=== PATIENT | female | born 2000 | race Caucasian/White ===

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

== ENCOUNTER 2020-03-26 15:58 | Emergency (ER) | payer OTHER, SELFPAY ==
--- NOTE | ~2020-03-26 | CT_ITS ---
EXAMINATION: CT abdomen pelvis w con DATE: 03/26/2020 17:32 INDICATION: Upper abdominal pain. Elevated serum lipase. TECHNIQUE: Computed tomography (CT) of the abdomen and pelvis was performed with 100 cc Omnipaque 350 intravenous contrast. Automated exposure control and iterative reconstruction technique were employe d. Exam dose: 488.71 mGy-cm total exam DLP. COMPARISON: None. FINDINGS: The lung bases are clear of infiltrate or consolidation. Normal heart size. No pericardial or pleural effusion. There is mild peripancreatic fat stranding suggesting acute interstitial edematous pancreatitis. No p ancreatic calcification or ductal dilatation. No pancreatic mass lesion is evident. The liver, gallbladder, bile ducts, spleen and adrenal glands are unremarkable. Small lower pole righ t renal cyst. No other renal mass lesion is evident. No urinary tract calculus or hydroureteronephros is. The urinary bladder, uterus and adnexal areas are unremarkable other than retroversion of the mehul lia. Normal caliber of the abdominal aorta. No intraperitoneal or retroperitoneal or pelvic mass lesion or adenopathy or ascites. Normal appendix. No bowel obstruction, bowel wall thickening, pneumatosis or intraperitoneal free air . Small fat-containing umbilical hernia. Suspicious osteolytic or osteoblastic lesions. IMPRESSION: Peripancreatic fat stranding suggesting acute interstitial edematous pancreatitis Reviewed, dictated and finalized at Location [facility]. Reviewed, dictated and finalized at location A. O/PROSTHETIC AIDE IMPRESSION: Peripancreatic fat stranding suggesting acute interstitial edemato us pancreatitis
--- NOTE | ~2020-03-26 | US_ITS ---
US right upper quadrant DATE: 03/26/2020 18:14 INDICATION: Epigastric abdominal pain. Elevated serum lipase. TECHNIQUE: Real-time imaging of liver, pancreas, gallbladder areas COMPARISON: 03/26/2020 CT abdomen pelvis FINDINGS: Normal hepatopedal portal venous flow direction. No hepatic space-occupying mass lesion is detected. No gallstones or gallbladder wall thickening or abnormal pericholecystic fluid collection. The common bile duct measures 2.6 mm, within normal range. Negative sonographic Myers's sign. There is heterogeneous density and relative enlargement of the pancreatic body and tail, which may be consistent with pancreatitis. IMPRESSION: Heterogeneous density and enlargement of the pancreatic body/tail, suggesting possible pa ncreatitis Negative gallbladder Reviewed, dictated and finalized at [facility]. Reviewed, dictated and finalized at location A. ODS TIME ANALYST IMPRESSION: Heterogeneous density and enlargement of the pancreatic body/tail, suggesting possible pancreatitis Negative gallbladder
--- NOTE | ~2020-03-26 | XR_ITS ---
EXAMINATION: XR chest 2V DATE: 03/26/2020 16:47 INDICATION: Epigastric abdominal pain and midsternal chest pain. TECHNIQUE: Frontal and lateral views of the chest were obtained. COMPARISON: Chest 2 views 11/13/2019 FINDINGS: The chest demonstrates clear lungs without pneumonia, pleural effusion, or pneumothorax. Th e heart size is normal. IMPRESSION: 1. No acute cardiopulmonary disease. Reviewed, dictated and finalized at location A. TIC OPERATOR
[2020-03-26 16:02] VITALS: BP 144/83; PULSE 93; RESP 18; TEMP 36.1; O2SAT 99
[2020-03-26 16:16] LABS: Basophils Percent Auto 0.3 % (0.2-1.2); Eosinophils Absolute Auto 0.1 K/mm3 (0-0.3); Eosinophils Percent Auto 1.4 % (0-4.4); Hematocrit 38.7 % (37.0-47.0); Immature Granulocyte Absolute 0.02 K/mm3 (0.00-0.031); Immature Granulocyte Percent A 0.3 % (0-0.5); Lymphocytes Absolute Auto 2.79 K/mm3 (0.9-3.2); Lymphocytes Percent Auto 35.2 % (18.3-44.2); Mean Corpuscular HGB Conc 33.6 g/dl (32-36); Mean Corpuscular Hemoglobin 28.7 pg (26-34); Mean Corpuscular Volume 85.4 fl (80-100); Mean Platelet Volume 9.5 fl (7.4-10.4); Monocytes Absolute Auto 0.4 K/mm3 (0.1-0.6); Monocytes Percent Auto 5.6 % (2.6-8.5); Neutrophils Absolute Auto 4.5 K/mm3 (1.3-6.7); Neutrophils Percent Auto 57.2 % (45.5-73.1); Platelet Count Result 278 k/mm3 (150-375); Red Blood Count 4.53 M/mm3 (4.2-5.4); Red Cell Distribution Width 12.3 % (11.5-14.5); White Blood Count 7.9 K/mm3 (4.5-10.0)
--- NOTE | 2020-03-26 16:32 | ECG_ITS ---
Measurements Intervals [place] Rate: 79 P: 19 IN: 160 QRS: 32 QRSD: 114 T: 21 QT: 368 QTc: 422 Interpretive Statements SINUS RHYTHM WITH SINUS ARRHYTHMIA INCOMPLETE RIGHT BUNDLE BRANCH BLOCK BORDERLINE ECG Electronically Signed On 03-26-2020 18:21:23 PULL OVER MACHINE OPERATOR by Tom Mariscal D.O.
--- NOTE | 2020-03-26 16:34 | ED.CHESTPAIN ---
HPI - Chest Pain General Chief Complaint: Abdominal Pain Stated Complaint: upper abd pain Time Seen by Provider: 03/26/20 16:11 Source: patient Mode of arrival: ambulatory Limitations: no limitations History of Present Illness HPI narrative: This is a 19 year old female that presents to the ER for intermittent substernal chest pain over the last 2 weeks. Pain is sharp and worse with breathing. Associated with some nausea and upper abdominal discomfort. Denies fever, cough, shortness of breath, vomiting, dysuria or diarrhea. Related Data Home Medications Medication Instructions Recorded Confirmed norethindrone-e.estradiol-iron tablet 11/13/19 Allergies Allergy/AdvReac Type Severity Reaction Status Date / Time CEFUROXIME AXETIL Allergy Unknown Unknown Uncoded 03/26/20 16:07 Review of Systems Review of Systems: Narrative: CONSTITUTIONAL: Denies fever CARDIOVASCULAR: Reports chest pain. Denies palpitations, or edema. RESPIRATORY: Denies cough or dyspnea. GASTROINTESTINAL: Reports abdominal pain, nausea. Denies vomiting, or diarrhea. GENITOURINARY: Denies dysuria or hematuria. All systems reviewed & are unremarkable except as noted in HPI and below PMFSH Past Medical History Medical History (Updated 03/26/20 @ 19:23 by Joann David PA-C) ADHD (attention deficit hyperactivity disorder) Surgical History Surgical History (Updated 11/13/19 @ 17:01 by FERN Álvarez) No significant past surgical history Family History Family History (Updated 11/13/19 @ 17:02 by FERN Álvarez) Father Unknown family medical history Mother Alive and well Social History Social History (Updated 03/26/20 @ 16:35 by Joann David PA-C) Smoking status: Never smoker Second hand tobacco smoke exposure: Yes Alcohol intake: never Substance use: current Substance use type: marijuana Gender identity (if verbalized by the patient): Female Exam Narrative: Exam Narrative: GENERAL: Well-appearing, well-nourished, and in no acute distress. HEAD: Normocephalic, atraumatic. EYES: EOMI. CHEST: Clear to auscultation. No respiratory distress. No wheezes rales or rhonchi HEART: Regular rate and rhythm. No murmur heard. Normal peripheral pulses. ABDOMEN: Soft, nondistended, normal active bowel sounds. Mild tenderness to palpation in the epigastrium, without guarding EXTREMITIES: Normal range of motion. No edema. SKIN: Warm, dry, no rash. NEURO: No focal deficits. Alert and oriented x3. PSYCH: Normal mood and affect Course Consultations Consultation #1: Spoke with Dr. Price about patient and workup who will follow up in clinic. Date: 03/26/20 Time: 19:28 Vital Signs Vital signs: Vital Signs Temperature 97 F L 03/26/20 16:02 Pulse Rate 93 03/26/20 16:02 Respiratory Rate 18 03/26/20 16:02 Blood Pressure 144/83 H 03/26/20 16:02 Pulse Oximetry 99 03/26/20 16:02 Temperature 97 F L 03/26/20 16:02 Pulse Rate 64 03/26/20 18:56 Respiratory Rate 14 03/26/20 18:56 Blood Pressure 134/78 03/26/20 18:56 Pulse Oximetry 100 03/26/20 18:56 MDM - Chest Pain MDM Narrative Medical decision making narrative: Patient presents the emergency department for upper abdominal discomfort x2 weeks. She is afebrile and nontoxic-appearing. CBC is without leukocytosis. Metabolic panel without concerning findings. Lipase is elevated 1211. UA without overt evidence of infection. Likely a contaminated catch. Bedside test is negative. CT scan of the abdomen and pelvis shows fairly pancreatic fat stranding suggesting acute interstitial edematous pancreatitis. Right upper quadrant ultrasound shows a normal gallbladder. Triglycerides are normal. Patient does not report any drinking history. Patient's pain is controlled and is tolerating oral intake. Spoke with Dr. Price about patient and workup who will follow up in clinic. Patient is stable and felt appropriate for further out
[2020-03-26 16:37] LABS: Alanine Aminotransferase 10 U/L (4-35); Albumin Level 4.4 g/dL (3.7-5.6); Alkaline Phosphatase 88 U/L (45-116); Anion Gap 8 mmol/L (8-16); Aspartate Amino Transferase 21 U/L (14-36); Bilirubin,Total 0.5 mg/dL (0.2-1.3); Blood Urea Nitrogen 11 mg/dL (8-21); Calcium 9.2 mg/dL (8.9-10.7); Carbon Dioxide 25 mmol/L (22-30); Chloride 103 mmol/L (98-107); Estimated CRCL calculation 120 ml/min; Estimated Glomerular Filt Rate > 60; Glucose 89 mg/dL (65-105); Lipase 1811 U/L (23-300); Potassium 3.9 mmol/L (3.4-5.0); Sodium 136 mmol/L (134-143)
[2020-03-26 16:38] LABS: Add Urine Microscopic? YES; Appearance Urine Cloudy (Clear); Bacteria Urine Trace /hpf; Bilirubin Urine Negative (Negative); Blood Urine 1+ (Negative); Color Urine Yellow (Yellow); Glucose Urine UA Negative (Negative); Ketones Urine Trace mg/dL (Negative); Leukocyte Esterase Ur 1+ LEU/UL (Negative); Mucus Urine Moderate /lpf; Nitrate Urine Negative (Negative); Protein Urine 1+ mg/dL (Negative); Squamous Epithelial Cell Urine Many /hpf (Few); Urobilinogen Urine Negative mg/dL (<2.0)
[2020-03-26 16:41] LABS: Specific Grav Ur 1.031 (1.001-1.035)
[2020-03-26 16:52] LABS: Prothrombin Time 13.3 Seconds (11.1-14.7)
[2020-03-26 16:53] LABS: Partial Thromboplastin Time 27.9 SECONDS (22.3-36.8)
[2020-03-26 16:55] LABS: D Dimer 0.46 ug/mL (<0.48)
[2020-03-26 17:13] LABS: Triglycerides 149 mg/dL (<150)
[2020-03-26] MEDS: SODIUM CHLORIDE 0.9% IV 1,000 ML 999 ML IV CONT (17:20)
[2020-03-26] MEDS: ONDANSETRON INJ 4 MG/2 ML VIAL IV PUSH (17:20)
[2020-03-26 17:25] LABS: Troponin I < 0.012 ng/mL (0.000-0.034)
[2020-03-26 18:56] VITALS: BP 134/78; PULSE 64; RESP 14; O2SAT 100
--- NOTE | 2020-03-26 19:29 | PC.NURSE ---
Report received from Chantel Pacheco RN, to continue care. Pt resting comfortably on stretcher and reports is painfree at present time. Awaiting disposition.
== END 2020-03-26 19:48 | disposition home or self-care (01) ==
PROVIDERS: Physician Assistant; Emergency Provider Emergency Medicine; Family Provider Pediatrics; PCP Pediatrics
DX: K85.90 Acute pancreatitis without necrosis or infection, unspecified (principal); I45.10 Unspecified right bundle-branch block
CPT/HCPCS: 36415; 71046; 74177; 76705; 80053; 81001; 81025; 83690; 84478; 84484; 85025; 85380; 85610; 85730; 87086; 87088; 93005; 96361; 96374; 96375; 99284; J0131; J2405; J7030; Q9967

== ENCOUNTER 2020-04-07 11:10 | Outpatient (CLI) | payer OTHER, SELFPAY ==
[2020-04-07 12:34] LABS: Amylase 192 U/L (30-100); Cholesterol 202 mg/dL (0-200); HDL Direct 50 mg/dL; Lipase 1522 U/L (23-300); Triglycerides 75 mg/dL (<150)
[2020-04-07 12:47] LABS: LDL Cholesterol Direct 144 mg/dL
[2020-04-07 13:05] LABS: Thyroid Stimulating Hormone 0.602 uIU/mL (0.465-4.680)
== END 2020-04-07 11:11 | disposition home or self-care (01) ==
LOC: ANHLAB 11:12
PROVIDERS: PCP Pediatrics; Visit Provider Pediatrics
DX: K85.90 Acute pancreatitis without necrosis or infection, unspecified (principal)
CPT/HCPCS: 36415; 80061; 82150; 83690; 84436; 84443

== ENCOUNTER 2020-06-13 13:35 | Outpatient (CLI) | payer OTHER, SELFPAY ==
[2020-06-13 13:57] LABS: Hematocrit 37.2 % (37.0-47.0); Hemoglobin 12.3 g/dL (12.0-15.0); Mean Corpuscular HGB Conc 33.1 g/dl (32-36); Mean Corpuscular Hemoglobin 28.4 pg (26-34); Mean Corpuscular Volume 85.9 fl (80-100); Mean Platelet Volume 9.7 fl (7.4-10.4); Platelet Count Result 204 k/mm3 (150-375); Red Blood Count 4.33 M/mm3 (4.2-5.4); Red Cell Distribution Width 12.7 % (11.5-14.5); White Blood Count 5.6 K/mm3 (4.5-10.0)
[2020-06-13 14:06] LABS: Alanine Aminotransferase 9 U/L (4-35); Albumin Level 4.4 g/dL (3.7-5.6); Alkaline Phosphatase 76 U/L (45-116); Amylase 77 U/L (30-100); Anion Gap 6 mmol/L (8-16); Aspartate Amino Transferase 22 U/L (14-36); Bilirubin,Total 0.5 mg/dL (0.2-1.3); Blood Urea Nitrogen 12 mg/dL (8-21); Calcium 9.3 mg/dL (8.9-10.7); Carbon Dioxide 23 mmol/L (22-30); Chloride 109 mmol/L (98-107); Estimated Glomerular Filt Rate > 60; Glucose 91 mg/dL (65-105); Lipase 275 U/L (23-300); Potassium 4.1 mmol/L (3.4-5.0); Sodium 138 mmol/L (134-143)
== END 2020-06-13 13:36 | disposition home or self-care (01) ==
PROVIDERS: PCP Pediatrics; Visit Provider Nurse Practitioner Family
DX: K85.90 Acute pancreatitis without necrosis or infection, unspecified (principal)
CPT/HCPCS: 36415; 80053; 82150; 83690; 85027

== ENCOUNTER 2020-08-06 21:30 | Emergency (ER) | payer OTHER, SELFPAY ==
--- NOTE | ~2020-08-06 | XR_ITS ---
EXAMINATION: XR knee LT 3V DATE: 08/06/2020 22:52 INDICATION: Left knee pain post trampoline injury. TECHNIQUE: Anteroposterior, oblique and crosstable lateral views of the left knee were obtained COMPARISON: None. FINDINGS: Alignment is normal. No fracture. Joint spaces appear normal on nonweightbearing imaging. No joint e ffusion/layering lipohemarthrosis. Soft tissues are unremarkable. IMPRESSION: 1. Negative left knee radiographs. Reviewed, dictated and finalized at location A.
[2020-08-06 21:58] VITALS: BP 144/87; PULSE 84; RESP 16; O2SAT 100
[2020-08-06 22:11] VITALS: BP 144/87; PULSE 84; RESP 16; TEMP 36.6; O2SAT 100
--- NOTE | 2020-08-06 23:21 | ED.GENADULT ---
HPI - General Adult General Chief complaint: Extremity Injury, Lower <VELIA Hughes Last Filed: 08/06/20 23:31> Stated complaint: left knee - trampoline <Heriberto Ku PA-C - Last Filed: 08/06/20 23:31> Time Seen by Provider: 08/06/20 22:13 <VELIA Hughes Last Filed: 08/06/20 23:31> Source: patient, family and RN notes reviewed <VELIA Hughes Last Filed: 08/06/20 23:31> Mode of arrival: ambulatory <VELIA Hughes Last Filed: 08/06/20 23:31> Limitations: no limitations <VELIA Hughes Last Filed: 08/06/20 23:31> History of Present Illness HPI narrative: Patient is a 19-year-old female who presents to emergency department for evaluation of left knee pain that began after jumping on a trampoline patient notes aching pain anteriorly and superiorly involving the knee with pain posteriorly when walking patient denies other injuries or complaints on arrival is in no distress has not been seen for this complaint nor she taken anything for her symptoms denies prior injury <Heriberto Ku PA-C - Last Filed: 08/06/20 23:31> Related Data Home medications: Home Medications Medication Instructions Recorded Confirmed norethindrone-e.estradiol-iron tablet 11/13/19 06/13/20 hydroxyzine HCl 25 mg tablet 25 mg PO BID PRN 06/13/20 06/13/20 escitalopram oxalate mg 08/06/20 <VELIA Hughes Last Filed: 08/06/20 23:31> Allergies/adverse reactions: Allergies Allergy/AdvReac Type Severity Reaction Status Date / Time CEFUROXIME AXETIL Allergy Unknown Unknown Uncoded 08/06/20 22:16 <VELIA Hughes Last Filed: 08/06/20 23:31> Review of Systems Review of Systems: All systems reviewed & are unremarkable except as noted in HPI and below <VELIA Hughes Last Filed: 08/06/20 23:31> PMFSH Past Medical History Medical History: Medical History ADHD (attention deficit hyperactivity disorder) Marijuana use <VELIA Hughes Last Filed: 08/06/20 23:31> Surgical History Surgical History: Surgical History No significant past surgical history <Heriberto Ku PA-C - Last Filed: 08/06/20 23:31> Family History Family History: Family History Father Unknown family medical history Mother Alive and well <Heriberto Ku PA-C - Last Filed: 08/06/20 23:31> Social History Social History: Social History Smoking status: Current every day smoker (marijuana use daily) Second hand tobacco smoke exposure: Yes Alcohol intake: never Substance use: current Substance use type: marijuana Gender identity (if verbalized by the patient): Female <Heriberto Ku PA-C - Last Filed: 08/06/20 23:31> Exam Narrative: Exam Narrative: GENERAL: Well-appearing, well-nourished, and in no acute distress. HEAD: Normocephalic, atraumatic. EYES: PERRLA and EOMI. ENT: Nares clear, no rhinorrhea or epistaxis. Mucous membranes moist. EXTREMITIES: Normal range of motion. No edema. Tenderness to palpation involving the posterior aspect of the left knee and anterior aspect SKIN: Warm, dry, no rash. NEURO: No focal deficits. Alert and oriented x3. Neurovascularly intact PSYCH: Normal mood and affect. <Heriberto Ku PA-C - Last Filed: 08/06/20 23:31> Course Course Emergency Course: Patient in the room at this time in no distress aware of case findings treatment plan and diagnosis agreeing to follow-up as instructed or to return if symptoms worsen or concerns. <Heriberto Ku PA-C - Last Filed: 08/06/20 23:31> Vital Signs Vital signs: Vital Signs Pulse Rate 84 08/06/20 21:58 Respiratory Rate 16 08/06/20 21:58 Blood Pressure 144/87 H 08/06/20 21:58 Pulse Oximetry 100 08/06/20
[2020-08-06 23:47] VITALS: BP 120/64; PULSE 86; RESP 18; O2SAT 99
== END 2020-08-06 23:48 | disposition home or self-care (01) ==
PROVIDERS: Emergency Provider General Practice; PCP Pediatrics
DX: M25.562 Pain in left knee (principal); F90.9 Attention-deficit hyperactivity disorder, unspecified type
CPT/HCPCS: 73562; 99283

== ENCOUNTER 2020-09-06 10:25 | Emergency (ER) | payer OTHER, SELFPAY ==
[2020-09-06 10:30] VITALS: BP 125/81; PULSE 54; RESP 16; TEMP 35.8; O2SAT 98
--- NOTE | 2020-09-06 10:35 | ED.URI ---
HPI - URI/Sore Throat General Chief Complaint: Upper Respiratory Infection Stated Complaint: BODY ACHES/COUGH/NASAL CONGESTION/EARACHE Time Seen by Provider: 09/06/20 10:35 Source: patient and RN notes reviewed History of Present Illness HPI Narrative: Patient is a 19-year-old female who presents the urgent care with complaints of right earache, cough, body aches and nasal congestion. Patient states that it started with a cough 2 days ago and everything has progressed. Patient states that she took an [id number]-zlo-[id number] pain killer this morning . Patient also states that she had a Covid test done this morning and will get the results back within a couple hours. Patient denies of any shortness of breath. Denies of any known fevers, nausea, vomiting. No other acute complaints. No acute distress noted. Patient aware of the plan of care. Some parts of this dictation were generated by voice recognition software and may contain typographical and/or grammatical inaccuracies. Related Data Home Medications Medication Instructions Recorded Confirmed norethindrone-e.estradiol-iron tablet 11/13/19 06/13/20 hydroxyzine HCl 25 mg tablet 25 mg PO BID PRN 06/13/20 06/13/20 escitalopram oxalate mg 08/06/20 Allergies Allergy/AdvReac Type Severity Reaction Status Date / Time CEFUROXIME AXETIL Allergy Unknown Unknown Uncoded 08/06/20 22:16 Review of Systems Review of Systems: Narrative: CONSTITUTIONAL: Denies fever, chills, or sweats. EYES: Denies visual changes, redness, or discharge. ENT: Reports of right otalgia, nasal congestion, postnasal drainage and sore throat CARDIOVASCULAR: Denies chest pain, palpitations, or edema. RESPIRATORY: Reports of nonproductive cough without dyspnea GASTROINTESTINAL: Denies abdominal pain, nausea, vomiting, or diarrhea. GENITOURINARY: Denies dysuria or hematuria. SKIN: Denies rash or itching. MUSCULOSKELETAL: Denies back pain, joint pain, or myalgia. NEUROLOGIC: Denies headache, numbness, or weakness. All other systems reviewed are negative, except as documented in HPI. [facility] Past Medical History Medical History ADHD (attention deficit hyperactivity disorder) Marijuana use Surgical History Surgical History No significant past surgical history Family History Family History Father Unknown family medical history Mother Alive and well Social History Social History Smoking status: Current every day smoker (marijuana use daily) Second hand tobacco smoke exposure: Yes Alcohol intake: never Substance use: current Substance use type: marijuana Gender identity (if verbalized by the patient): Female Comments At the time of my signature, I reviewed and agree with the nursing past medical, surgical, social, and family history. There is no relevant family history pertinent to the patient complaint. Exam Narrative: Exam Narrative: GENERAL: This is a well-nourished, well-developed patient, in no apparent distress. HEAD: normocephalic, atraumatic. EYES: PERRL. Sclera clear/white. Vision is grossly intact. EARS: External ears normal, auditory canals clear and without drainage, moderately injected erythemic right TM, left TM normal without perforation. Hearing grossly intact. NOSE: External nose normal with no obvious nasal discharge, nares without redness, no rhinorrhea. THROAT: Mucous membranes moist, posterior pharynx clear. Mild postnasal drainage NECK: Neck supple, non-tender without lymphadenopathy CARDIOVASCULAR: Regular rate and rhythm without murmurs, gallops, or rubs. RESPIRATORY: Clear to auscultation. Breath sounds equal bilaterally. No wheezes, rales, or rhonchi. SKIN: warm, intact with no suspicious lesions or rash, good texture and turgor. NEURO: awake, alert, and oriented to person, place and time. There
== END 2020-09-06 10:56 | disposition home or self-care (01) ==
PROVIDERS: Emergency Provider Nurse Practitioner Family; PCP Pediatrics
DX: H66.91 Otitis media, unspecified, right ear (principal)
CPT/HCPCS: 99213; G0463

== ENCOUNTER 2021-01-15 12:04 | Emergency (ER) | payer OTHER, SELFPAY ==
[2021-01-15 12:12] VITALS: BP 138/84; PULSE 97; RESP 20; TEMP 36.6; O2SAT 98
[2021-01-15 12:17] VITALS: BP 138/84; PULSE 97; RESP 20; TEMP 36.6; O2SAT 98
--- NOTE | 2021-01-15 12:35 | ED.EAR ---
HPI - Ear Problem General Chief complaint: Ear Stated complaint: ear pain/sob/cough/diarrhea/runny nose Source: patient Mode of arrival: ambulatory Limitations: no limitations History of Present Illness HPI Narrative: Patient is a 20-year-old female who presents complaining of left ear pain, cough and congestion. Patient taking at home Covid test 2 days ago which was negative, however, she reports no improvement in symptoms or condition. She denies taking cklt-fgy-wzssgcn medications. She is not vaccinated for Covid, denies known Covid exposure. Patient has no significant medical history. MD Complaint: ear pain Related Data Home Medications Medication Instructions Recorded Confirmed norethindrone-e.estradiol-iron 1 tablet PO DAILY 11/13/19 01/15/21 hydroxyzine HCl 25 mg tablet 25 mg PO BID PRN 06/13/20 01/15/21 escitalopram oxalate 10 mg PO DAILY 08/06/20 01/15/21 albuterol sulfate [ProAir HFA] 2 puff INHALATION Q4H PRN 01/15/21 01/15/21 Allergies Allergy/AdvReac Type Severity Reaction Status Date / Time CEFUROXIME AXETIL Allergy Unknown Unknown Uncoded 01/15/21 12:13 Review of Systems Review of Systems: CONSTITUTIONAL: Denies fever, chills, or sweats. EYES: Denies visual changes, redness, or discharge. ENT: Congestion and left ear pain CARDIOVASCULAR: Denies chest pain, palpitations, or edema. RESPIRATORY: Denies cough or dyspnea. GASTROINTESTINAL: Denies abdominal pain, nausea, vomiting, or diarrhea. GENITOURINARY: Denies dysuria or hematuria. SKIN: Denies rash or itching. MUSCULOSKELETAL: Denies back pain, joint pain, or myalgia. NEUROLOGIC: Denies headache, numbness, dizziness, or weakness. PSYCHIATRIC: Denies anxiety or depression. [facility] Past Medical History Medical History ADHD (attention deficit hyperactivity disorder) Marijuana use Surgical History Surgical History No significant past surgical history Family History Family History Father Unknown family medical history Mother Alive and well Social History Social History Smoking status: Current every day smoker (marijuana use daily) Second hand tobacco smoke exposure: Yes Alcohol intake: never Substance use: current Substance use type: marijuana Gender identity (if verbalized by the patient): Female Sexual Orientation (if Verbalized by the Patient): Straight or Heterosexual Comments At the time of signature, I have reviewed and agree with nursing past medical, surgical, social, and family history unless otherwise noted. Please see nursing chart for further information. There is no relevant family history pertinent to the presenting complaint. Exam Narrative: GENERAL: Well-appearing, well-nourished, and in no acute distress. HEAD: Normocephalic, atraumatic. EYES: EOMI. No redness or drainage. Conjunctiva are normal. ENT: Mucous membranes pink and moist. Nares clear. No rhinorrhea. Right TMs normal, left TM bulging, cloudy, injected. Throat mild erythema. Uvula midline. NECK: AROM. Supple. No lymphadenopathy. CHEST: No respiratory distress. HEART: Regular rate and rhythm. EXTREMITIES: Normal range of motion. No edema. SKIN: Warm, dry, no rash. NEURO: No focal deficits. Alert and oriented x3. Gait steady. PSYCH: Normal affect. No signs of depression or anxiety. Course Vital Signs Vital signs: Vital Signs Temperature 36.6 C 01/15/21 12:12 Pulse Rate 97 01/15/21 12:12 Respiratory Rate 20 01/15/21 12:12 Blood Pressure 138/84 01/15/21 12:12 Pulse Oximetry 98 01/15/21 12:12 Temperature 36.6 C 01/15/21 12:17 Pulse Rate 97 01/15/21 12:17 Respiratory Rate 20 01/15/21 12:17 Blood Pressure 138/84 01/15/21 12:17 Pulse Oximetry 98 01/15/21 12:17 Reviewed Medical Decision Making MDM Narrative Medical decision anni
[2021-01-16 16:37] LABS: SARS-CoV-2 RNA PCR Negative
== END 2021-01-15 12:50 | disposition home or self-care (01) ==
PROVIDERS: Emergency Provider Nurse Practitioner; PCP Pediatrics
DX: H66.92 Otitis media, unspecified, left ear (principal); Z20.822 Contact with and (suspected) exposure to COVID-19; F12.20 Cannabis dependence, uncomplicated
CPT/HCPCS: 99213; C9803; G0463; U0003; U0005

== ENCOUNTER 2021-04-22 10:08 | Day surgery (SDC) | payer OTHER, SELFPAY ==
[2021-04-22] VITALS (10 sets, daily range): BP systolic 119–140; BP diastolic 63–82; PULSE 55–100; RESP 14–21; TEMP 36.3–36.9; O2SAT 99–100
--- NOTE | ~2021-04-22 | CT_ITS ---
EXAMINATION: CT abdomen pelvis w con INDICATION: Abdominal pain TECHNIQUE: Computed tomographic images of the abdomen and pelvis were obtained after the administrati on of 100 cc of Omnipaque 350 intravenous contrast. The dose-length product (DLP) was 559.47 mGy-cm. Automated exposure control and iterative reconstruction technique were employed. COMPARISON: 03/26/2020 FINDINGS: The lung bases are clear. The heart size is normal. The liver, spleen, pancreas, gallbladde r, and adrenal glands are normal. The kidneys are unremarkable. The dilated appendix measures up to 1 .3 cm. There is edematous stranding of the periappendiceal fat. A small amount of periappendiceal flu id is noted. There is no evidence of periappendiceal abscess or perforation. A small amount of inflam matory fluid is present in the pelvis. Mildly enlarged right lower quadrant lymph nodes are likely re active. There is no free intraperitoneal gas or evidence of bowel obstruction. IMPRESSION: 1. Acute appendicitis with inflammatory fluid tracking in the pelvis. No definite evidence of abscess or perforation. These findings were discussed with Dr. Baltazar Davis in the Emergency Department at 1156 hours on 04/22/2021. Reviewed, dictated and finalized at location A. ITION PROGRAM INSTRUCTOR IMPRESSION: 1. Acute appendicitis with inflammatory fluid tracking in the pelvis. No defini te evidence of abscess or perforation. These findings were discussed with Dr. Kia Davis in the Emergency Department at 1156 hours on 04/22/2021.
[2021-04-22 10:36] LABS: Basophils Percent Auto 0.4 % (0.2-1.2); Eosinophils Absolute Auto 0.1 K/mm3 (0-0.3); Eosinophils Percent Auto 1.5 % (0-4.4); Hematocrit 39.2 % (37.0-47.0); Hemoglobin 13.3 g/dL (12.0-15.0); Immature Granulocyte Absolute 0.02 K/mm3 (0.00-0.031); Immature Granulocyte Percent A 0.3 % (0-0.5); Lymphocytes Absolute Auto 1.65 K/mm3 (0.9-3.2); Lymphocytes Percent Auto 22.1 % (18.3-44.2); Mean Corpuscular HGB Conc 33.9 g/dl (32-36); Mean Corpuscular Hemoglobin 29.2 pg (26-34); Mean Platelet Volume 9.1 fl (7.4-10.4); Monocytes Absolute Auto 0.6 K/mm3 (0.1-0.6); Monocytes Percent Auto 8.2 % (2.6-8.5); Neutrophils Percent Auto 67.5 % (45.5-73.1); Platelet Count Result 223 k/mm3 (150-375); Red Blood Count 4.56 M/mm3 (4.2-5.4); Red Cell Distribution Width 12.2 % (11.5-14.5); White Blood Count 7.5 K/mm3 (4.5-10.0)
[2021-04-22 10:58] LABS: Add Urine Microscopic? YES; Appearance Urine Clear (Clear); Bacteria Urine Trace /hpf; Bilirubin Urine Negative (Negative); Blood Urine 1+ (Negative); Color Urine Yellow (Yellow); Glucose Urine UA Negative (Negative); Ketones Urine 1+ mg/dL (Negative); Leukocyte Esterase Ur Trace LEU/UL (Negative); Mucus Urine Rare /lpf; Nitrate Urine Negative (Negative); Protein Urine Negative (Negative); Squamous Epithelial Cell Urine Moderate /hpf (Few); Urobilinogen Urine Negative mg/dL (<2.0)
--- NOTE | 2021-04-22 11:03 | ED.ABDPAIN ---
HPI - Abdominal Pain General Chief Complaint: Abdominal Pain Stated Complaint: abd pain Time Seen by Provider: 04/22/21 10:16 Source: RN notes reviewed History of Present Illness HPI narrative: Patient presents emergency room from home for abdominal pain. Patient symptoms began yesterday pain is located in the bilateral lower abdomen worse in the right lower quadrant described as aching in nature states associated nausea. She denies any fevers or chills chest pain, shortness of breath diarrhea vomiting or any other symptoms. States she not take anything for the pain Related Data Home Medications Medication Instructions Recorded Confirmed norethindrone-e.estradiol-iron 1 tablet PO DAILY 11/13/19 01/15/21 escitalopram oxalate 10 mg PO DAILY 08/06/20 01/15/21 Allergies Allergy/AdvReac Type Severity Reaction Status Date / Time cefuroxime Allergy Rash Verified 04/22/21 10:22 Review of Systems Review of Systems: Gen.: Denies fevers or chills ENT: Denies congestion Respiratory: Denies shortness of breath or cough CV: Denies chest pain or palpitations GI: See for Musculoskeletal: Denies back pain or muscle pain Neuro: Denies numbness, tingling, weakness or focal weakness Skin: Denies rash Except as documented, all other systems reviewed and negative [facility] Past Medical History Medical History ADHD (attention deficit hyperactivity disorder) Marijuana use Surgical History Surgical History No significant past surgical history Family History Family History Father Unknown family medical history Mother Alive and well Social History Social History Smoking status: Current every day smoker (marijuana use daily) Second hand tobacco smoke exposure: Yes Alcohol intake: never Substance use: current Substance use type: marijuana Gender identity (if verbalized by the patient): Female Sexual Orientation (if Verbalized by the Patient): Straight or Heterosexual Exam Narrative: APPEARANCE: No acute distress, nontoxic, resting in bed EYES: EOMI HEENT: Normocephalic, atraumatic, OMM RESPIRATORY: No respiratory distress Clear to auscultation bilaterally with no rhonchi wheezing or rales. CARDIOVASCULAR: Regular rate and rhythm without murmurs rubs or gallops. ABDOMINAL: Soft, nondistended tender palpation right lower quadrant left lower quadrant no tenderness right upper quadrant left lower quadrant no rebound or guarding MUSCULOSKELETAl: Moves all extremities. No clubbing, cyanosis or edema. NEURO: Awake and alert. Following commands, speech normal, no focal deficits SKIN:: Warm, dry. No rashes lesions or abrasions PSYCHIATRIC: Normal affect/mood, Course Course Emergency Course: Discussed with Dr. Eagle presentation work-up plan is to take the patient to the OR today request patient received 1 g Ancef as there is no cross-reactivity with cefuroxime Discussed with patient and family results of workup and diagnosis. Discussed need for admission. Patient and family understand and agree to current treatment plan Vital Signs Vital signs: Vital Signs Temperature 97.6 F 04/22/21 10:10 Pulse Rate 100 04/22/21 10:10 Respiratory Rate 18 04/22/21 10:10 Blood Pressure 129/69 04/22/21 10:10 Pulse Oximetry 100 04/22/21 10:10 Temperature 97.6 F 04/22/21 10:10 Pulse Rate 73 04/22/21 12:32 Respiratory Rate 20 04/22/21 12:32 Blood Pressure 140/82 04/22/21 12:32 Pulse Oximetry 100 04/22/21 12:32 MDM - Abdominal Pain Lab Data Result diagrams: 04/22/21 10:31 04/22/21 10:31 Labs: Lab Results 04/22/21 04/22/21 04/22/21 Range/Units 10:31 10:31 10:41 WBC 7.5 (4.5-10.0) K/mm3 RBC 4.56 (4.2-5.4) M/mm3 Hgb 13.3 (12.0-15.0) g/dL Hct 39.2 (37.0-47.0) % MCV 86.0 (80-
[2021-04-22] MEDS: KETOROLAC 30 MG/ML VIAL (*BKC) IV PUSH (11:12)
[2021-04-22] MEDS: ONDANSETRON INJ 4 MG/2 ML VIAL IV PUSH (11:12)
[2021-04-22] MEDS: SODIUM CHLORIDE 0.9% IV 1,000 ML 999 ML IV CONT (11:13)
[2021-04-22 11:15] LABS: Alanine Aminotransferase 11 U/L (4-35); Albumin Level 4.5 g/dL (3.5-5.1); Alkaline Phosphatase 101 U/L (38-126); Anion Gap 7 mmol/L (8-16); Aspartate Amino Transferase 23 U/L (14-36); Bilirubin,Total 1.5 mg/dL (0.2-1.3); Blood Urea Nitrogen 9 mg/dL (7-17); Calcium 9.5 mg/dL (8.4-10.2); Carbon Dioxide 24 mmol/L (22-30); Chloride 105 mmol/L (98-107); Estimated CRCL calculation 122 ml/min; Estimated Glomerular Filt Rate > 60; Glucose 92 mg/dL (65-110); Lipase 25 U/L (23-300); Sodium 136 mmol/L (137-145)
--- NOTE | 2021-04-22 13:32 | PM.IMHP ---
H&P: HPI History of Present Illness Date/Time: 04/22/21 13:32 Chief Complaint: RLQ abdominal pain Narrative: This is a 20-year-old female who presented to the ER with complaints of lower abdominal pain. She reports that her pain started yesterday shortly after waking up in the morning. It was primarily in the RLQ and was initially mild in nature. She states that the pain worsened throughout the day and by this morning, she was in tears due to the severity of pain. She also reports nausea and bloating, but no vomiting. Denies fever or chills. She came into the ER for evaluation and CT scan of the abdomen/pelvis showed acute appendicitis with inflammatory fluid tracking in the pelvis. No definite evidence of abscess or perforation. Labs showed a normal white blood cell count. Urine bedside negative. Our service was consulted by the ED for surgical evaluation of acute appendicitis. The patient is now seen in the ER. She is still having some nausea, but no vomiting. She has no other specific complaints at this time. Denies ever having this pain in the past. She has had no previous abdominal surgeries. She does report a history of acute pancreatitis in February of 2020. There was no clear etiology at that time and she improved with resolution of her elevated pancreatic enzymes. No further episodes since treated. Review of Systems Review of Systems: All systems reviewed & are unremarkable except as noted in HPI and below Constitutional: Constitutional: Reports as per HPI, Denies chills, Denies fatigue and Denies fever(s) Eyes: Eyes: Reports no additional eye complaints and Denies change in vision ENT: Reports system reviewed and no additional complaints, except as documented, Reports Normal hearing present and Denies dizziness Cardiovascular: Cardiovascular: Reports no additional cardiovascular complaints, Denies chest pain and Denies leg edema Respiratory: Respiratory: Reports no additional respiratory complaints, Denies cough and Denies dyspnea Gastrointestinal: Gastrointestinal: Reports as per HPI, Reports no additional gastrointestinal complaints, Reports abdominal pain (RLQ), Reports bloating, Denies change in bowel habits, Denies change in stool character, Denies constipation, Denies diarrhea and Reports nausea Genitourinary: Genitourinary: Reports no additional female genitourinary complaints, Denies nocturia and Denies dysuria Neurologic: Reports system reviewed and no additional complaints, except as documented, Denies numbness and Denies tingling Psychiatric: Psychiatric: Reports anxiety and Reports depression (treated for anxiety/depression, no current symptoms) [facility] Past Medical History Medical History ADHD (attention deficit hyperactivity disorder) Anxiety and depression History of acute pancreatitis February 2020, unclear etiology Marijuana use Surgical History Surgical History No significant past surgical history Family History Family History Father Unknown family medical history Mother Alive and well Social History Social History Smoking status: Current every day smoker (marijuana use daily) Second hand tobacco smoke exposure: Yes Alcohol intake: never Substance use: current Substance use type: marijuana Occupation/Education: occupation Additional occupation/education comments: works at [employer], not currently in college Gender identity (if verbalized by the patient): Female Sexual Orientation (if Verbalized by the Patient): Straight or Heterosexual Meds Home Medications and Allergies Home Medications Medication Instructions Recorded Confirmed Type norethindrone-e.estradiol-iron 1 tablet PO DAILY 11/13/19 01/15/21 History escitalopram oxalate 10 mg PO DAILY 08/06/20 01/15/21 History Allergies Cruz
--- NOTE | 2021-04-22 13:40 | WPDANESEPPF ---
Anes - Initial Pre Proc Eval Procedure: Operation Date: 04/22/21 14:00 Proposed Procedures p Laparoscopic Appendectomy - Ze Eagle MD Date/Time: 04/22/21 13:40 Surgeon: Ze Eagle MD Pre Op Diagnosis: abd pain Patient Data Age: 20 Gender: F Height: 1.57 m Weight: 76.66 kg Last Vital Signs Temp 36.4 C 04/22/21 10:10 Pulse 73 04/22/21 12:32 Resp 20 04/22/21 12:32 BP 140/82 04/22/21 12:32 Pulse Ox 100 04/22/21 12:32 Allergies Allergy/AdvReac Type Severity Reaction Status Date / Time cefuroxime Allergy Rash Verified 04/22/21 10:22 Home Medications Medication Instructions Recorded Confirmed Type norethindrone-e.estradiol-iron 1 tablet PO DAILY 11/13/19 01/15/21 History escitalopram oxalate 10 mg PO DAILY 08/06/20 01/15/21 History Laboratory Tests 04/22/21 04/22/21 04/22/21 10:31 10:31 10:41 WBC 7.5 K/mm3 K/mm3 (4.5-10.0) RBC 4.56 M/mm3 M/mm3 (4.2-5.4) Hgb 13.3 g/dL g/dL (12.0-15.0) Hct 39.2 % % (37.0-47.0) MCV 86.0 fl fl (80-100) MCH 29.2 pg pg (26-34) MCHC 33.9 g/dl g/dl (32-36) RDW 12.2 % % (11.5-14.5) Plt Count 223 k/mm3 k/mm3 (150-375) MPV 9.1 fl fl (7.4-10.4) Immature Gran % (Auto) 0.3 % % (0-0.5) Neut % (Auto) 67.5 % % (45.5-73.1) Lymph % (Auto) 22.1 % % (18.3-44.2) [place] % (Auto) 8.2 % % (2.6-8.5) Eos % (Auto) 1.5 % % (0-4.4) Baso % (Auto) 0.4 % % (0.2-1.2) Lymph # (Auto) 1.65 K/mm3 K/mm3 (0.9-3.2) [place] # (Auto) 0.6 K/mm3 K/mm3 (0.1-0.6) Eos # (Auto) 0.1 K/mm3 K/mm3 (0-0.3) Baso # (Auto) 0.0 K/mm3 K/mm3 (0.0-0.1) Abs Immat Gran (auto) 0.02 K/mm3 K/mm3 (0.00-0.031) Absolute Neuts (auto) 5.0 K/mm3 K/mm3 (1.3-6.7) Absolute Nucleated RBC 0.0 K/mm3 K/mm3 (0.0-0.012) Nucleated RBC % 0.0 % % (0.0-0.2) Sodium 136 mmol/L L mmol/L (137-145) Potassium 4.0 mmol/L mmol/L (3.4-5.0) Chloride 105 mmol/L mmol/L (98-107) Carbon Dioxide 24 mmol/L mmol/L (22-30) Anion Gap 7 mmol/L L mmol/L (8-16) BUN 9 mg/dL mg/dL (7-17) Creatinine 0.60 mg/dL L mg/dL (0.7-1.0) Estim Creat Clear Calc 122 ml/min ml/min Estimated GFR > 60 (59 - ) Glucose 92 mg/dL mg/dL (65-110) Calcium 9.5 mg/dL mg/dL (8.4-10.2) Total Bilirubin 1.5 mg/dL H mg/dL (0.2-1.3) AST 23 U/L U/L (14-36) ALT 11 U/L U/L (4-35) Alkaline Phosphatase 101 U/L U/L (38-126) Total Protein 7.0 g/dL g/dL (6.3-8.2) Albumin 4.5 g/dL g/dL (3.5-5.1) Lipase 25 U/L U/L (23-300) Urine Color Yellow (Yellow) Urine Appearance Clear (Clear) Urine pH 5.0 (5.0-9.0) Ur Specific [place] 1.020 (1.001-1.035) Urine Protein Negative mg/dL mg/dL (Negative) Urine Glucose (UA) Negative mg/dL mg/dL (Negative) Urine Ketones 1+ mg/dL H mg/dL (Negative) Ur Blood (Man) 1+ H (Negative) Urine Nitrate Negative (Negative) Urine Bilirubin Negative (Negative) Urine Urobilinogen Negative mg/dL mg/dL (<2.0) Leukocyte Esterase Rfl Trace GRETCHEN/UL H GRETCHEN/UL (Negative) Urine RBC 3-5 /hpf H /hpf (0-2) Urine WBC 4-6 /hpf H /hpf Ur Squamous Epith Cells Moderate /hpf H /hpf (Few) Urine Bacteria Trace /hpf /hpf Urine Mucus Rare /lpf /lpf Patient hx anesthesia problems: none Family hx anesthesia problems: none Results Review: All pre-operative results and documents have been reviewed as part of the pre-operative evaluation. [facility] Past Medical History Medical History ADHD (atten
[2021-04-22] MEDS: LACTATED RINGERS 1,000 ML 30 ML IV CONT ×2 (13:49→16:29)
--- NOTE | 2021-04-22 14:31 | WPDHPUPDATE1 ---
History and Physical Update Update Date/Time: 04/22/21 14:31 History and Physical has been reviewed, including an updated exam of the patient. There are NO changes in the patient's condition. Risks, benefits, and alternatives have been discussed and questions answered. Patient agrees to proceed with procedure.
--- NOTE | 2021-04-22 18:24 | P.OP_ITS ---
Procedure Note - Detailed Date of Procedure 04/22/21 Pre-op Diagnosis Acute appendicitis Post-op Diagnosis same Procedure Performed Laparoscopic appendectomy Surgeon Ze Eagle MD Sewage Disposal Engineer Pastora VARELA Anesthesia general and local (0.25% Marcaine with epinephrine) Indications Patient is a 20-year-old woman who presented to the emergency room with right lower quadrant abdominal pain. She had a normal white count but had tenderness with guarding in the right lower quadrant. CT scan showed a 13 mm dilated appendix with evidence of inflammation extending into the pelvis. She is taken to surgery now for laparoscopic appendectomy for acute appendicitis. Findings The appendix was extremely dilated throughout its length. Even the very a origin of the appendix was quite dilated. There was some concern for an intraluminal lesion. No other significant findings were noted. Description of Procedure Patient was taken to surgery and induced into general anesthesia. The abdomen is prepped and draped. Trocars were placed in the usual fashion using 0.5% Marcaine with epinephrine and applied Medical optical trocars. A 5 mm camera was used. The patient was placed in Trendelenburg with the right-side elevated. The area of the appendix was found and the appendix was freed from some inflammatory adhesions. The entire appendix was quite dilated and very thickened. I dissected in the mesoappendix and found the appendiceal artery. The appendiceal artery was thoroughly cauterized and then divided. I continued dissection of the mesoappendix and dissected down to the base of the appendix, skeletonizing it. The base of the appendix was so dilated, I was concerned that there may be an intraluminal lesion here. I decided to go ahead and excise the nearby cecum to remove the appendix so that any appendiceal lesions at the appendiceal origin would be removed with the appendix itself. The 10 11 left lower quadrant trocar was replaced with a 12 mm trocar. The 60 mm echelon stapler was introduced through the left lower quadrant trocar. I elevated the appendix and exposed the associated cecum. I then used the echelon stapler and divided a cuff of cecum with the appendix. The appendix was then placed in Endo-Catch bag and retrieved through the 12 mm left lower quadrant trocar site. I replaced the trocar and reviewed the area of the appendectomy. The staple line was reviewed and appeared quite satisfactory. It was bloody and I cauterized the staple line. This achieved good hemostasis. I irrigated and suctioned the right lower quadrant and removed any residual clot. There was no evidence of any bleeding. We checked and recheck the area. All looked good. I then used the Nolberto cone and Jocelyn suture pass device. An 0 Vicryl suture was used to close the fascia at the 12 mm trocar site. We then evacuated CO2 and removed the trocar sleeves. Skin wounds were closed with subcuticular 4-0 Monocryl skin suture. The wounds were dressed with Exofin surgical adhesive. The patient was awakened and taken to recovery in good condition. Sponge and needle counts were correct x2. Estimated Blood Loss -5 Drains No Packing No Pathology yes (Appendix) Complications No immediate complications Condition stable Disposition PACU
== END 2021-04-22 17:55 | disposition home or self-care (01) ==
LOC: ANHED 12:48 → ANHSURGERY 13:03
PROVIDERS: Emergency Provider Emergency Medicine; PCP Pediatrics; Visit Provider Surgery
PROC: 0DTJ4ZZ Resection of Appendix, Percutaneous Endoscopic Approach (ICD-10-PCS; CPT 44970; principal; 2021-04-22 14:00)
DX: K35.30 Acute appendicitis with localized peritonitis, without perforation or gangrene (principal); K36 Other appendicitis; F90.9 Attention-deficit hyperactivity disorder, unspecified type; F41.8 Other specified anxiety disorders; F12.90 Cannabis use, unspecified, uncomplicated; E66.9 Obesity, unspecified; Z68.30 Body mass index [BMI] 30.0-30.9, adult
CPT/HCPCS: 44970; 36415; 74177; 80053; 81001; 81025; 83690; 85025; 88304; 96361; 96365; 96375; 99285; J0330; J0690; J1100; J1885; J2250; J2405; J2704; J2710; J3010; J7030; J7120; Q9967

== ENCOUNTER 2022-11-06 22:43 | Emergency (ER) | payer OTHER, SELFPAY ==
[2022-11-06 22:57] VITALS: BP 136/71; PULSE 84; RESP 20; TEMP 36.2; O2SAT 100
[2022-11-07 01:13] VITALS: BP 108/63; PULSE 50; RESP 18; O2SAT 100
--- NOTE | 2022-11-07 02:15 | ED.EYEPROB ---
HPI - Eye Problem General Chief complaint: Eye Problems Stated complaint: left eye exposed to over can cleaner Time Seen by Provider: 11/07/22 01:47 History of Present Illness HPI Narrative: Patient presents to the emergency department from work. 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 She describes it as a very small amount. Maybe a couple drops. However she immediately went to wash her eye out. Denies ever having vision changes. Had some discomfort initially that has resolved. I very minimally injected in the medial aspect. Overall exam grossly benign. Patient is very pleasant Related Data Home Medications Medication Instructions Recorded Confirmed norethindrone 1 mg-ethinyl 1 tablet PO DAILY 11/13/19 01/15/21 estradiol 20 mcg (21)-iron 75 mg (7) tablet escitalopram oxalate 10 mg tablet 10 mg PO DAILY 08/06/20 01/15/21 Allergies Allergy/AdvReac Type Severity Reaction Status Date / Time cefuroxime Allergy Rash Verified 11/06/22 22:43 Review of Systems Review of Systems: Other than HPI review of systems grossly unremarkable PMFSH Past Medical History Medical History ADHD (attention deficit hyperactivity disorder) Anxiety and depression History of acute pancreatitis February 2020, unclear etiology Marijuana use Surgical History Surgical History No significant past surgical history Family History Family History Father Unknown family medical history Mother Alive and well Social History Social History Smoking status: Current every day smoker (marijuana use daily) Second hand tobacco smoke exposure: Yes Alcohol intake: never Substance use: current Substance use type: marijuana Living arrangements: with family Occupation/Education: occupation Additional occupation/education comments: works at [employer], not currently in college Gender identity (if verbalized by the patient): Female Sexual Orientation (if Verbalized by the Patient): Straight or Heterosexual Exam Narrative: GENERAL: Well-appearing, well-nourished, and in no acute distress. HEAD: Normocephalic, atraumatic. EYES: PERRLA and EOMI. ENT: Nares clear, no rhinorrhea or epistaxis. Mucous membranes moist. NECK: Supple. CHEST: No respiratory distress. EXTREMITIES: Normal range of motion. No edema. SKIN: Warm, dry, no rash. NEURO: No focal deficits. Alert and oriented x3. PSYCH: Normal mood and affect. Course Course Emergency Course: Exam benign and patient denies all complaints. Unable to find litmus paper to test the pH of her eye. We will flush instead Vital Signs Vital signs: Vital Signs Temperature 36.2 C L 11/06/22 22:57 Pulse Rate 84 11/06/22 22:57 Respiratory Rate 20 11/06/22 22:57 Blood Pressure 136/71 11/06/22 22:57 Pulse Oximetry 100 11/06/22 22:57 Oxygen Delivery Room Air 11/06/22 22:57 Temperature 36.2 C L 11/06/22 22:57 Pulse Rate 50 L 11/07/22 01:13 Respiratory Rate 18 11/07/22 01:13 Blood Pressure 108/63 11/07/22 01:13 Pulse Oximetry 100 11/07/22 01:13 Oxygen Delivery Room Air 11/07/22 01:13 Discharge Plan Discharge Clinical Impression: Chemical exposure of eye Patient Disposition: Home, Self-Care Condition: Stable Instructions: Chemical Eye Kee (ED) Additional Instructions: Return to the emergency department if you have any vision changes or increased eye pain Prescriptions: No Action norethindrone-e.estradiol-iron 1 mg-20 mcg (21)/75 mg (7) tablet 1 tablet PO DAILY hydrocodone-acetaminophen 5-325 mg tablet 1 - 2 tablet PO Q6H PRN (Reason: pain) Qty: 10 0RF ibuprofen 600 mg tablet 600 mg PO Q6H PRN (Reason: pain) Qty: 14 0RF escitalopram oxalate 10 mg tablet 10 mg PO DAILY
--- NOTE | 2022-11-07 02:19 | PC.NURSE ---
This RN flushed pt eye with 10cc flush per EDP request. Pt tolerated well.
== END 2022-11-07 02:22 | disposition home or self-care (01) ==
PROVIDERS: Emergency Provider Emergency Medicine
DX: Z77.098 Contact with and (suspected) exposure to other hazardous, chiefly nonmedicinal, chemicals (principal); F17.200 Nicotine dependence, unspecified, uncomplicated; F12.90 Cannabis use, unspecified, uncomplicated
CPT/HCPCS: 99282

== ENCOUNTER 2023-06-23 08:56 | Emergency (ER) | payer OTHER, SELFPAY ==
--- NOTE | ~2023-06-23 | XR_ITS ---
XR knee RT 3V 06/23/2023 10:05 INDICATION: Right knee pain PROCEDURE: 3 views right knee COMPARISON: No prior studies for comparison. FINDINGS: Fracture, dislocation or subluxation is not identified. The soft tissues appear within norm al limits. No foreign bodies are identified. IMPRESSION: 1: NO ACUTE BONE OR JOINT ABNORMALITY IDENTIFIED. Reviewed, dictated and finalized at location B.
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
== END 2023-06-23 10:25 | disposition home or self-care (01) ==
PROVIDERS: Emergency Provider Registered Nurse
DX: S86.911A Strain of unspecified muscle(s) and tendon(s) at lower leg level, right leg, initial encounter (principal); W22.8XXA Striking against or struck by other objects, initial encounter; Y99.0 Civilian activity done for income or pay; F12.90 Cannabis use, unspecified, uncomplicated
CPT/HCPCS: 73562; 99213; G0463

== ENCOUNTER 2024-07-30 17:15 | Observation (INO) | payer SELFPAY ==
[2024-07-30] VITALS (18 sets, daily range): BP systolic 114–122; BP diastolic 56–64; PULSE 78–114; O2SAT 98–99
--- OUTSIDE RECORDS SUMMARY | 2024-07-30 17:25 | XMS_ITS | Referral Summary ---
Author Organization [facility] Address [address] [place] [id number] Care Team Providers Care Bank Representative Name Role Phone No, Physician Primary Care Provider [phone] Encounters Date Type Department Care Team Description 05/31/2024 11:15 AM CDT Office Visit [facility] Obstetrics and Gynecology [address] [place] [address] Floor [address] [place] [address] Supervision of other normal , antepartum (Primary Dx); 20 weeks gestation of 05/31/2024 10:15 AM CDT - 05/31/2024 11:59 PM CDT Hospital Encounter [facility] - Ultrasound [address] [place] [address], [address] [place] [address], [address] [place] [address] Supervision of other normal , antepartum Discharge Disposition: Discharge to home or self care 05/03/2024 2:15 PM RAISIN WASHER Clinical Support [facility] Obstetrics and Gynecology [address] [place] [id number] 05/03/2024 2:00 PM RAISIN WASHER Office Visit [facility] Obstetrics and Gynecology [address] [place] [address] Floor [address] [place] [phone] Supervision of other normal , antepartum (Primary Dx) from Last 3 Months Allergies Active Allergy Reactions Criticality Noted Date Comments Cefuroxime Rash Medium 02/27/2024 Medications PNV no.95/ferrous fum/folic ac ( ORAL) Take by mouth Active Active Problems Problem Noted Date Diagnosed Date Supervision of other normal , antepartu m 02/23/2024 Overview (05/31/2024): H/o scoliosis ?H/o pancreatitis a/w alcohol use, last episode several months prior to IOB, self manages with hydration -?YONIS noted at OSH 03/12 [x] Initial BMI: 26.11 [] Labs: still needs as of 05/31/24 [x] Genetic Screening: desires cfDNA-->further declined genetics [x] Baby ASA: n/a [] 1hr GCT at 24-28wks: [] Tdap (27-36wks): [x] Flu Shot:declines [] RSV Vaccine in season (32.0-36.6): [x] COVID vaccine: Vaccinated, recommend updated vaccine [] Rhogam (if Rh neg): n/a O+ [] GBS at 36 wks: [] [] control method: [] 39 weeks discussion of IOL vs. Expectant management: [] Mode of delivery: [] For C/S bottle of CHG 4% and hand out provided @ 36wks Teaching: [x] 1st visit [] 28-30 week [] 36 week HPV Vaccine counseling (<=26 yo): [] Completed vaccine series [] To be ordered prior to discharge on [] To receive at visit [] Declined s/p counseling [] Not applicable Assessment & Plan (02/27/2024 6:38 PM RAISIN WASHER): - TVUS for dating and viability completed today - labs ordered - Pap up to date 2022 - GC/CT/trichomonas collected - Reviewed criteria for ASA 81mg: Does not meet Criteria - Flu and Covid vaccination recommendations reviewed - Genetic testing options reviewed, desires NIPT - Anatomy US ordered - Education on care and expectations provided by OB RN Estimated Date of Delivery Comme nts Yes 10/13/2024 Based on last me nstrual period of 01/07/2024 Social History Tobacco Use Types Packs/Day Years Used Date Smoking Tobacco: Never Smokeless Tobacco: Never Tobacco Cessation:Counseling Given: Not Answered AUDIT-C Answer Date Recorded Frequency of Alcohol Consumption Not on file 02/27/2024 Q2: How many drinks containi ng alcohol do you have on a typical day when you are drinking? Patient does not drink Q3: How often do you have si x or more drinks on one occasion? Never 02/27/2024 Estimated Date of Delivery Comme nts Yes 10/13/2024 Based on last me nstrual period of 01/07/2024 Sex and Gender Information Value Date Recorded Sex Assigned at Not on file Legal Sex Female 10:37 AM RAISIN WASHER Gender Identity Not on file Sexual Orientation Not on file Occupation Industry Job Start Date Job End Date [employer] Not on file Not on file Not on file Last Filed Vital Signs Vital Sign Reading Time Taken Comments Blood Pressure 112/72 05/31/2024 11:42 AM CDT Pulse - - Temperature - - Respiratory Rate - - Oxygen Saturation - - Inhaled Oxygen Concentration - - Weight 66 kg (145 lb 6.4 oz) 05/31/2024 11:42 AM CDT Height 152.9 cm (5' 0.2) 05/31/2024 11:42 AM CD T Body Mass Index 28.21 05/31/2024 11:42 AM CDT Plan of Treatment Not on file Procedures Procedure Name Priority Date/Time Associated Diagnosis Comments US OB 14 WEEKS OR OVER Schedule Routine, Read Routine (OP Routine) 05/31/2024 10:44 AM CDT Supervision of other normal , antepartum from Last 3 Months Results * US Ob 14 Weeks Or Over (05/31/2024 10:44 AM CDT) Fetus# Fetus1 VIEWPOINT Estimated Weight 368 g&grams VIEWPOINT Placenta Details posterior, Previa-no VIEWPOINT Presentation Breech VIEWPOINT Anatomical Region Laterality Modality Abdomen N/A Ultrasound 05/31/2024 10:4 6 AM CDT Impressions 05/31/2024 11:44 AM CDT Normal biometry and amniotic fluid. Anatomic assessment as above which appeared grossly normal within the limitations of ultrasound. Normal adnexa. TVCL was long and closed. Narrative Procedure Note Veronika Andrews MD - 05/31/2024 IMPRESSION: Normal biometry and amniotic fluid. Anatomic assessment as above whichappeared grossly normal within the limitations of ultrasound.Normal adnexa. TVCL was long and closed. us Desirae Baeza MD IMG OB US PROCEDURES Final Re sult from Last 3 Months Insurance [place] [id number] [facility] [id number] [address] [place] [id number] Care Teams Bank Representative Relationship Specialty Start Date End Date No, Physician PCP - General 02/20/24
--- OUTSIDE RECORDS SUMMARY | 2024-07-30 17:25 | XMS_ITS | Clinical Summary ---
Author Organization [facility] Address [address] [place] [id number] Care Team Providers Care Consultant Teacher Name Role Phone No, Physician Primary Care Provider [phone] Allergies Active Allergy Reactions Criticality Noted Date Comments Cefuroxime Rash Medium 02/27/2024 Medications PNV no.95/ferrous fum/folic ac ( ORAL) Take by mouth Active Active Problems Problem Noted Date Diagnosed Date Supervision of other normal , antepartu 02/23/2024 Overview (05/31/2024): H/o scoliosis ?H/o pancreatitis [...] applicable Assessment & Plan (02/27/2024 6:38 PM WORK FORCE ADVISOR): - TVUS for dating and viability completed [...] on last me nstrual period of 01/07/2024 Encounters Date Type Department Care Team Description 05/31/2024 11:15 AM CDT Office Visit [facility] Obstetrics and Gynecology [address] [place] [address] Floor [address] [place] [phone] Supervision of other normal , antepartum (Primary Dx); 20 weeks gestation of 05/31/2024 10:15 AM CDT - 05/31/2024 11:59 PM CDT Hospital Encounter [facility] Outpatient [facility] - Ultrasound [address] [place] [address], [address] [place] [address], [address] [place] [address] Supervision of other normal , antepartum Discharge Disposition: Discharge to home or self care 05/03/2024 2:15 PM WORK FORCE ADVISOR Clinical Support [facility] Obstetrics and Gynecology [address] [place] [address] 05/03/2024 2:00 PM WORK FORCE ADVISOR Office Visit [facility] Obstetrics and Gynecology [address] [place] [address] Floor [address] [place] [address] Supervision of other normal , antepartum (Primary Dx) from Last 3 Months Surgical History Surgery Date Site/Laterality Comments APPENDECTOMY Family History Medical History Relation Name Comments No Known Problems Father No Known Problems Mother Relation Name Status Comments Father Alive Mother Alive Social History Tobacco Use Types Packs/Day Years Used Date Smoking Tobacco: Never Smokeless Tobacco: Never Tobacco Cessation:Counseling Given: Not Answered AUDIT-C Answer Date Recorded Frequency of Alcohol Consumption Not on file 02/27/2024 Q2: How many drinks containi ng alcohol do you have on a typical day when you are drinking? Patient does not drink 4 Q3: How often do you have si x or more drinks on one occasion? Never 02/27/2024 Estimated Date of Delivery Comme nts Yes 10/13/2024 Based on last me nstrual period of 01/07/2024 Sex and Gender Information Value Date Recorded Sex Assigned at Not on file Legal Sex Female 10:37 AM WORK FORCE ADVISOR Gender Identity Not on file Sexual Orientation Not on file Occupation Industry Job Start Date Job End Date [employer] Not on file Not on file Not on file Obstetrics History Para Term AB IAB SAB Ectopic Multiple Livin g Live Births 1 Date Outcome GA Total Labor Labor/2nd/3rd Weight Sex Type Anes PTL Arcelia A1 A5 Name Clin Current Summary Episode Dates Number of Fetuses Estimated Date of Delivery 02/23/2024 - Present (07/30/2024) 1 10/13/2024 (set by Desirae Baeza MD on 02/27/2024 based on Last Menstrual Period on 01/07/2024) Dating Summary Based On BENITO GA Diff Last Menstrual Period on 01/07/2024 10/13/2024 Working Ultrasound on 02/27/2024 10/15/2024 -2d GA:7w0d Vitals Pregravid Weight Height TWG (As of 07/30/2024) Pregrav id BMI 59 kg (130 lb) 152.9 cm (5' 0.2) 6.985 kg (15 lb 6.4 oz) 25.22 Date GA Fund Present FHR Mvmt BP Weight Edema Alb Glu Ket Dil/ Eff/Sta 5 20w5d Inpatient data not displayed here. See encounter summary. Notes Progress Notes - Office Visi t - 05/31/2024 - GA:20w5d 05/31/2024 - 20w5d - Onur Sadler MD EOB--20w5d - Doing well today. Presents with partner, Jamey. - Reports [facility] is not in-network and she will be transferring care to different [facility]. Advised to contact us to complete release to send records to new physician. - Advised to complete IOB labs - Anatomy US with AGA fetus without anomalies - Vaccines: Counseled on updated covid vaccine - 2T labs and 1h GTT due at next visit Progress Notes - Office Visi t - 05/03/2024 - GA:16w5d 05/03/2024 - 16wd - Mona Christensen MD EOB Visit Patient reports doing well today. She reports occasional mild cramping. She denies vaginal bleeding and leakage of fluid. Other concerns today include: occasional episodes of feeling dizzy/lightheaded at work that resolve with sitting. Discussed increasing hydration, wearing compression socks, and resting as needed. WAC precautions reviewed. RTC in 4 weeks. FORCE ADVISOR Progress Notes - Office Visi t - 04/05/2024 - GA:12w5d 04/05/2024 - 12w5d - Chelsi Rosario MD Went to ED 03/12 for bleeding and dx with YONIS, 3 x 6 x 11mm. No further bleeding. Declines genetic testing today, ultrasound + FHT. FORCE ADVISOR Progress Notes - Office Visi t - 02/27/2024 - GA:7w2d 02/27/2024 - 7w2d - Desirae Baeza MD [facility] Initial Visit Jena Sidhu is a 23 y.o. female at 7w2d weeks gestation (dated by L=1, Estimated Date of Delivery: 10/13/24 ) who is a new patient presenting for an initial obstetrics visit. She is accompanied by her boyfriend, Jamey. She reports overall doing well. Denies vaginal bleeding, loss of fluid, contractions, or cramping. I have reviewed and updated: OB history, GENERAL TECHNICIAN history, problem list, past medical history, past surgical history, family history, social history, current medications, allergies, review of systems. Please see appropriate sections for relevant information. Objective: Please see Vitals & Physical Exam in Episode Tab Exam & TVUS Chaperoned by: Linda Lepe Assessment & Plan: Diagnoses and all orders for this visit: Supervision of other normal , antepartum (Primary) Assessment & Plan: - TVUS for dating and viability completed today - labs ordered - Pap up to date 2022 - GC/CT/trichomonas collected - Reviewed criteria for ASA 81mg: Does not meet Criteria - Flu and Covid vaccination recommendations reviewed - Genetic testing options reviewed, desires NIPT - Anatomy US ordered - Education on care and expectations provided by OB RN Orders: - US Ob 14 Weeks Or Over; Future - Antibody screen; Future - CBC without differential; Future - HIV 1/2 Antibody plus p24 Antigen Blood; Future - RPR Blood; Future - Hepatitis B Surface Antigen Blood; Future - Hepatitis C antibody Blood; Future - Rubella IgG antibody Blood; Future - Varicella Zoster IgG antibody Blood; Future - ABO/Rh; Future - Hemoglobin A1c; Future - SURESWAB(R), CT/NG, T VAGINALIS; Future - Urine culture Urine, clean voided; Future - POCT urinalysis dipstick - US Ob Limited Return to clinic in 4 weeks. Advised to contact office with any questions or concerns or present to [facility] with any emergent issues. Desirae Baeza MD FORCE ADVISOR 02/27/2024 - 7w2d - Rodriguez Byrd RN Met with Jena campos for initial/first trimester visit teaching. Discussed the practice reviewed that group is comprised of 1 male physician, 6 female physicians, and 3 female nurse practitioners. Reviewed safe medications, appropriate diet, exercise/activity, travel, animals and vaccinations. Pt had specific questions that were answered appropriately. Desires cfDNA FORCE ADVISOR Last Filed Vital Signs Vital Sign Reading [...] 05/31/2024 11:42 AM CDT Plan of Treatment Health Maintenance Due Date Last Done Comments Cervical Cancer Screening 2000 Chlamydia and Gonorrhea (GC/ CT) Screening 2000 Depression Screening 2000 Hepatitis C Screening 2000 Meningococcal B Vaccine (1 o f 2 - Standard) 2016 Regular Well Visit/Exam 18-64 2018 DTaP/Tdap/Td Vaccine (7 - Td or Tdap) 10/10/2022 10/10/2012, 12/31/2004, 05/21/2002, Additional history exists Covid-19 Vaccine (3 - 2023-2 5 season) 2023 02/19/2021, 01/29/2021 Influenza Vaccine (Season Ended) 2024 12/10/2014, 12/26/2013, 12/26/2012 Hepatitis B Screening Completed 08/10/2001 , 2000, 2000 Pneumococcal vaccine <65 Completed 002, 05/11/2001, 04/18/2001, Additional history exists Varicella Vaccines Completed 08/29/2006, 11/06/2001 HPV Vaccines Completed 04/19/2013, 11/28, 10/10/2012 Procedures Procedure Name Priority Date/Time Associated Diagnosis [...] Re sult from Last 3 Months Insurance [facility] [employer] [id number] [address] [place] [id number] [facility] [employer] [id number] Care Teams Consultant Teacher Relationship Specialty Start Date End Date No, Physician PCP - General 02/20/24
--- NOTE | 2024-07-30 18:19 | PC.NURSE ---
Dr Lozoya notified of patient c/o of Left side Rib pain with movement. Also informed that patient has not seen an OB Dr since 20 weeks, she is working on an insurance change.
--- NOTE | 2024-07-30 18:30 | OBADM ---
This patient, Jena Sidhu, admitted to the OB room OB Post 112 for observation. Patient/family oriented to hospital policies and general routines including ID bracelet, bed and alarms, visiting hours, pain management, procedures, bathroom and other care routines, personal items, smoking policy, room service/diet, and visiting hours. Patient/Family are encouraged to report perceived risks to care and to ask questions if they do not understand what they are told or what they should do.
[2024-07-30 19:12] LABS: Add Urine Microscopic? YES; Appearance Urine Clear (Clear); Bacteria Urine 1+ /hpf; Bilirubin Urine Negative (Negative); Blood Urine Negative (Negative); Color Urine Yellow (Yellow); Glucose Urine UA Trace mg/dL (Negative); Ketones Urine Trace mg/dL (Negative); Leukocyte Esterase Ur Trace LEU/UL (Negative); Nitrate Urine Negative (Negative); Non Pathogenic Casts 0-2; Protein Urine Trace mg/dL (Negative); RBC Urine 0-2 /hpf (0-2); Specific Grav Ur 1.023 (1.001-1.035); Squamous Epithelial Cell Urine Moderate /hpf (Few); pH Urine 6.5 (5.0-9.0)
--- NOTE | 2024-07-30 19:32 | PC.NURSE ---
Dr Lozoya notified of no change in rib pain after Tylenol, informed that patient is overall reassured and ok with going home. Order for discharge.
--- NOTE | 2024-08-01 08:27 | P.PNOB_ITS ---
OB - Triage/Final Diagnosis Visit Information Reason for evaluation: other (nausea, vomiting, rib pain) Comments/Additional reasons for admission: I have assessed the risk for this patient, Jena Janell Sidhu, and determined that she would benefit from observation care. Evaluation Laboratory results: Laboratory Tests 07/30/24 18:48 Urine Color Yellow Urine Appearance Clear Urine pH 6.5 Ur Specific [place] 1.023 Urine Protein Trace Urine Glucose (UA) Trace H Urine Ketones Trace H Ur Blood (Man) Negative Urine Nitrate Negative Urine Bilirubin Negative Urine Urobilinogen 1.0 Ur Leukocyte Esterase Trace H Urine RBC 0-2 Urine WBC 6-10 H Ur Squamous Epith Cells Moderate Urine Bacteria 1+ H Urine Casts 0-2
== END 2024-07-30 19:44 | disposition home or self-care (01) ==
PROVIDERS: Admitting Provider Obstetrics & Gynecology Gynecology; Visit Provider Obstetrics & Gynecology Gynecology
DX: O21.2 Late vomiting of pregnancy (principal); O26.893 Other specified pregnancy related conditions, third trimester; R07.81 Pleurodynia; Z3A.29 29 weeks gestation of pregnancy
CPT/HCPCS: 81001; 87086; G0378; G0379

== ENCOUNTER 2025-01-18 12:36 | Emergency (ER) | payer SELFPAY ==
--- NOTE | ~2025-01-18 | XR_ITS ---
EXAMINATION: XR heel LT min 2V, 01/18/2025 12:57 TELEPHONE OPERATOR CHIEF HISTORY: LT heel pain for 1 day, Plantar aspect, no injury COMPARISON: No comparisons available. Findings: No acute fracture or malalignment. No significant degenerative changes. Soft tissues unremarkable. Impression: No acute fracture or malalignment. Reviewed, dictated and finalized at location P. PHONE OPERATOR CHIEF Impression: No acute fracture or malalignment.
--- NOTE | 2025-01-18 12:37 | ED.LOWEXIN ---
HPI - Extremity Injury (Lower) General Chief Complaint: Extremity Injury, Lower Stated Complaint: Left Foot Pain Time Seen by Provider: 01/18/25 12:48 Source: patient, RN notes reviewed and old records reviewed Mode of arrival: ambulatory Limitations: no limitations History of Present Illness HPI Narrative: 24-year-old female presents to the [facility] with left heel pain since yesterday. denies any injury. No bruising or swelling noted. Tenderness to mid calcaneal area. Related Data Home Medications ?Medication ?Instructions ?Recorded ?Confirmed ?Last Taken ?Type cholecalciferol (vitamin D3) 50 01/18/25 Unknown History mcg (2,000 unit) tablet ferrous sulfate 325 mg (65 mg mg 01/18/25 Unknown History iron) tablet (FeroSul) sertraline 100 mg tablet 100 mg PO DAILY 01/18/25 Unknown History Allergies Allergy/AdvReac Type Severity Reaction Status Date / Time cefuroxime Allergy Rash Verified 01/18/25 12:57 Review of Systems Review of Systems: All systems reviewed & are unremarkable except as noted in HPI and below Constitutional: Constitutional: Reports no additional constitutional complaints Cardiovascular: Cardiovascular: Reports no additional cardiovascular complaints, Denies chest pain and Denies dyspnea Respiratory: Respiratory: Reports no additional respiratory complaints, Denies chest congestion, Denies cough and Denies dyspnea Musculoskeletal: Musculoskeletal: Reports as per HPI Integumentary/Breasts: Skin/Breast: Reports system reviewed and no additional complaints, except as docu PMFSH Past Medical History Medical History Anxiety and depression History of acute pancreatitis February 2020, unclear etiology Marijuana use ADHD (attention deficit hyperactivity disorder) Surgical History Surgical History No significant past surgical history Family History Family History Father Unknown family medical history Mother Alive and well Social History Social History Smoking status: Current every day smoker (marijuana use daily) Second hand tobacco smoke exposure: Yes Alcohol intake: never Substance use: current Substance use type: marijuana Do You Feel Safe in your Home?: Yes Lack of Transportation: No Lack of Food: Never True Current Housing: I Have Housing Concerned About Future Housing: No Difficulty Paying Gas/Electric Bills: No Difficulty Paying for Meds: No Currently Unemployed: No Education: Decline to Answer Difficulty w/ Childcare or Family Care: No Living arrangements: with family Occupation/Education: occupation Additional occupation/education comments: works at [employer], not currently in college Gender identity (if verbalized by the patient): Female Sexual Orientation (if Verbalized by the Patient): Straight or Heterosexual Comments At the time of my signature, I reviewed and agree with the nursing past medical, surgical, social, and family history. There is no relevant family history pertinent to the patient complaint. Exam Const: General: cooperative, healthy appearing, comfortable, no acute distress, well developed, alert, poor hygiene and well nourished Nutritional Appearance: well nourished Orientation/consciousness: patient oriented x3 Limitations: no limitations HENMT: Head: normal to inspection Eyes: General: appearance normal, both eyes and all related structures Alignment and Position: alignment normal Neck: Neck: normal visual inspection, full ROM, no lymphadenopathy and no meningeal signs Chest: Chest palpation & inspection: normal inspection of the chest Resp: Effort & Inspection: normal respiratory effort and able to speak in complete sentences Cardio: Rate: regular rate Skin: General skin exam: normal color and no rashes or lesions noted Neuro: General: patient oriented x3, gait normal, moves all extremities and no meningeal signs Cognition (Neuro): normal cognition Speech: normal speech Gait exam (Neuro): Normal gait present Extrem: General: normal to inspection, full ROM, capillary refill normal and normal gait Left lower extremity: foot Details: normal capillary refill and tenderness Location: of the plantar foot Location: proximally and of the calcaneus Details: point tenderness ( Plantar aspect); none with a squeeze Psych: Appearance: grossly normal and well kempt Mental Status: mental status grossly normal Speech and movement: Normal speech and movement present and Clear speech present Affect: normal affect Attitude: cooperative Course Course Level of Care: Express Care Visit Vital Signs Vital signs: Vital Signs Temperature 97.7 F 01/18/25 12:48 Pulse Rate 77 01/18/25 12:48 Respiratory Rate 18 01/18/25 12:48 Blood Pressure 125/81 01/18/25 12:48 Pulse Oximetry 100 01/18/25 12:48 Oxygen Delivery Room Air 01/18/25 12:48 Temperature 97.7 F 01/18/25 12:48 Pulse Rate 77 01/18/25 12:48 Respiratory Rate 18 01/18/25 12:48 Blood Pressure 125/81 01/18/25 12:48 Pulse Oximetry 100 01/18/25 12:48 Oxygen Delivery Room Air 01/18/25 12:48 Reviewed MDM - Extremity Injury (Lower) MDM Narrative Medical decision making narrative: patient sitting in exam room. Patient is nontoxic, vitals stable. Patient presents with 1 day history of heel pain worse when standing. No pain when sitting. X-ray shows a calcaneal spur. Patient is appropriate for outpatient treatment with close follow-up Discharge instructions reviewed with patient, as well as provided in writing per nursing staff. The instructions also include specific and strict return/GO TO THE ER as well as f/u information. All questions have been answered, and the patient deny any further questions with discharge and discharge plan. Some parts of this dictation were generated by voice recognition software and may contain typographical and/or grammatical inaccuracies. Differential Diagnosis Differential diagnosis: Likely ankle sprain and strain and other ( arthritis, spur) Imaging Data Radiologist's impression: EXAMINATION: XR heel LT min 2V, 01/18/2025 12:57 MOTION STUDY ENGINEER HISTORY: LT heel pain for 1 day, Plantar aspect, no injury COMPARISON: No comparisons available. Findings: No acute fracture or malalignment. No significant degenerative changes. Soft tissues unremarkable. Impression: No acute fracture or malalignment. Critical Care Time Critical Care Time Critical Care Time: No Discharge Plan Discharge Clinical Impression: Heel spur Qualifiers: Laterality: left Qualified Code(s): M77.32 - Calcaneal spur, left foot Patient Disposition: Home Condition: Stable Instructions: Antibiotic Form, Heel Spur (ED) Additional Instructions: Your Xray did not show a fracture. Wear good supportive shoes at all times. Ice should be applied to help reduce swelling. It can be used for 20 to 30 minutes, every 2-3 hours while awake. Do not apply ice directly to your skin. You can alternate ibuprofen 600mg and Tylenol 650mg every 4 hours as needed for pain Please schedule a follow-up visit with your personal physician for further evaluation and treatment within 2 weeks especially if symptoms persist. For new or worsening symptoms go directly to the emergency room Patient Language: South [place] Prescriptions: No Action ferrous sulfate [FeroSul] 325 mg (65 mg iron) tablet cholecalciferol (vitamin D3) 50 mcg (2,000 unit) tablet sertraline 100 mg tablet 100 mg PO DAILY Follow-up/Referrals: UNKNOWN,DOCTOR [Non-Staff] Stand Alone Forms: Work/School Release IP Time of Disposition: 13:23
[2025-01-18 12:48] VITALS: BP 125/81; PULSE 77; RESP 18; TEMP 36.5; O2SAT 100
== END 2025-01-18 13:30 | disposition home or self-care (01) ==
PROVIDERS: Emergency Provider Nurse Practitioner
DX: M77.32 Calcaneal spur, left foot (principal); F17.290 Nicotine dependence, other tobacco product, uncomplicated; F41.9 Anxiety disorder, unspecified; F32.A Depression, unspecified
CPT/HCPCS: 73650; 99213; G0463